=== PATIENT | female | born 1990 | race Caucasian/White ===

== ENCOUNTER 2022-07-23 01:22 | Outpatient (CLI) | payer OTHER, SELFPAY ==
[2022-07-23 08:02] LABS: Abs Immature Grans 0.02 10^3/uL (0.0-0.06); Absolute Basophil Count 0.05 10^3/uL (0.0-0.2); Absolute Eosinophil Count 0.17 10^3/uL (0.0-0.7); Absolute Lymphocyte Count 1.73 10^3/uL (1.2-3.4); Absolute Monocyte Count 0.89 10^3/uL (0.1-0.8); Absolute Neutrophil Count 6.81 10^3/uL (1.2-6.7); Basophils % 0.5; Eosinophils % 1.8; HCT 41.1 % (36.0-46.0); HGB 13.5 g/dL (11.2-15.7); Immature Grans % 0.2; Lymphocytes % 17.9; MCH 30.3 pg (27.0-33.0); MCHC 32.8 % (32.0-36.0); MCV 92 fL (80-95); MPV 9.4 fL (8.0-11.0); Monocytes % 9.2; Neutrophils % 70.4; Platelet Count 333 10^3/uL (130-400); RBC 4.45 10^6/uL (3.93-5.22); RDW 12.2 % (11.7-14.6); RDW-SD 41.9 fL; WBC 9.67 10^3/uL (4.4-10.8)
[2022-07-23 09:11] LABS: Anion Gap 6.8 mmol/L (3-11); BUN 9 mg/dL (7-18); CO2 29.2 mmol/L (21.0-32.0); CREATININE 0.8 mg/dL (0.55-1.02); Calcium 9.2 mg/dL (8.5-10.1); Calculated LDL 91 mg/dL (<100); Chloride 103 mmol/L (98-107); Cholesterol 156 mg/dL (<200); Estimated GFR 100.96 (mL/min/1.73m2); Glucose 93 mg/dL (74-106); HDL Cholesterol 52 mg/dL (40-60); Potassium 4.2 mmol/L (3.5-5.1); Sodium 139 mmol/L (136-145); Triglyceride 66 mg/dL (<150)
== END 2022-07-23 01:23 | disposition home or self-care (01) ==
LOC: LBO 01:22
PROVIDERS: PCP Nurse Practitioner Family; Referring Provider Nurse Practitioner Family; Visit Provider Nurse Practitioner Family
DX: Z00.00 Encounter for general adult medical examination without abnormal findings (principal); Z86.2 Personal history of diseases of the blood and blood-forming organs and certain disorders involving the immune mechanism; Z13.220 Encounter for screening for lipoid disorders; Z13.1 Encounter for screening for diabetes mellitus
CPT/HCPCS: 36415; 80048; 80061; 85025

== ENCOUNTER 2022-12-10 08:34 | Outpatient (CLI) | payer OTHER, SELFPAY ==
[2022-12-10 08:32] LABS: Abs Immature Grans 0.02 10^3/uL (0.0-0.06); Absolute Basophil Count 0.08 10^3/uL (0.0-0.2); Absolute Eosinophil Count 0.24 10^3/uL (0.0-0.7); Absolute Lymphocyte Count 2.65 10^3/uL (1.2-3.4); Absolute Neutrophil Count 4.22 10^3/uL (1.2-6.7); Eosinophils % 3.1; HGB 14.8 g/dL (11.2-15.7); Immature Grans % 0.3; Lymphocytes % 34.4; MCH 30.5 pg (27.0-33.0); MCHC 33.6 % (32.0-36.0); MCV 91 fL (80-95); MPV 9.1 fL (8.0-11.0); Monocytes % 6.5; Neutrophils % 54.7; Platelet Count 405 10^3/uL (130-400); RBC 4.85 10^6/uL (3.93-5.22); RDW 12.3 % (11.7-14.6); RDW-SD 40.7 fL; WBC 7.71 10^3/uL (4.4-10.8)
--- OUTSIDE RECORDS SUMMARY | 2022-12-10 08:37 | XMS_ITS ---
Author Name Jose Brunson Address [address], [place] [id number] Organization [facility] Address [address], [place] [id number] Care Team Providers Care Machine Icer Name Role Phone Jose Brunson Unavailable [phone] PROBLEMS Type Condition ICD9-CM Code YHP30-ON Code Onset Dates Condition Status SNOMED Code Problem Chronic tonsillitis and adenoiditis 474.02 Active 290227553 Problem Dyspareunia in female N94.10 Active 90768156 Problem Halitosis 784.99 Active 71060627 ALLERGIES Substance Reaction Event Type Date Status Iodine rash Drug Allergy January, Active Penicillin V Potassium Anaphylaxis Drug Allergy January, Active shellfish vomiting Non Drug Allergy January, Active Betadine rash Drug Allergy January, Active Tylenol/Codeine #3 Unknown Drug Allergy January, Ac tive ENCOUNTERS Encounter Location Date Diagnosis [address] [id number] May, [address] [id number] Apr, [address] [id number] Apr, [address] [id number] Apr, [address] [id number] 14 Jan, 2022 Acute non-recurrent pansinusitis J01.[address] [id number] 01 Dec, 2021 Encounter for gynecological examination (general) (routine) without abnormal findings Z01.419 and Encounter for other screening for malignant neoplasm of breast Z12.39 [facility] [address], [place] [id number] 20 May, 2021 Encounter for screening laboratory testing for COVID-19 virus Z20.822 [facility] [address] [place], [place] [id number] 11 Apr, 2021 Exposure to COVID-19 virus Z20.822 [facility] Department [address] [place] [id number] 19 Nov, 2020 COVID-19 vaccine administered Z23 [address] [id number] 24 Oct, 2020 COVID-19 vaccine administered Z23 [address] [id number] 23 Oct, [address] [id number] 13 Sep, 2020 6 weeks follow-up Z39.[address] [id number] Aug, [address] [id number] Aug, 2 weeks follow-up Z39.[address] [id number] Jul, 38 weeks gestation of Z3A.38 and Encounter for supervision of other normal , third trimester Z34.[address] [id number] Jul, Encounter for supervision of other normal , third trimester Z34.[address] [id number] 06 Jul, 2020 Encounter for supervision of other normal , third trimester Z34.83 and 34 weeks gestation of Z3A.[address] [id number] 19 Jun, 2020 Encounter for supervision of other normal , third trimester Z34.[address] [id number] 05 Jun, 2020 Encounter for supervision of other normal , third trimester Z34.83 and Encounter for immunization Z23 [address] [id number] 16 May, 2020 Encounter for supervision of other normal , second trimester Z34.[address] [id number] Apr, Encounter for supervision of other normal , second trimester Z34.82 and 23 weeks gestation of Z3A.[address] [id number] Mar, Encounter for supervision of other normal , second trimester Z34.82 and 19 weeks gestation of Z3A.[address] [id number] Feb, Encounter for supervision of other normal , second trimester Z34.[address] [id number] January, Encounter for supervision of other normal , first trimester Z34.[address] [id number] Dec, Encounter for supervision of other normal , first trimester Z34.[address] [id number] Dec, [address] [id number] Nov, [address] [id number] Nov, [address] [id number] Nov, [address] [id number] Nov, [facility] [address] [place] [id number] Nov, Encounter for occupational health assessment Z02.[address] [id number] Jul, [address] [id number] Apr, Encounter for IUD removal Z30.432 and Pre-conception counseling Z31.69 [facility] [address] [place] [id number] Mar, [address] [id number] Dec, [address] [id number] Dec, Acute sore throat J02.9 and Influenza A J10.[address] [id number] Oct, Post-nasal drip R09.[address] [id number] Oct, Dyspareunia in female N94.10 ; Perineal pain R10.2 and IUD surveillance Z30.[address] [id number] Sep, Acute non-recurrent maxillary sinusitis J01.[address] [id number] Sep, [address] [id number] Mar, IUD surveillance Z30.[address] [id number] Mar, [facility] [address] [id number] Mar, Routine adult health maintenance Z00.[address] [id number] Mar, care and examination Z39.2 ; Encounter for insertion of intrauterine contraceptive device Z30.430 and General counseling and advice for contraceptive management Z30.[address] [id number] Feb, [address] [id number] January, [place] [address] [place], [place] [id number] January, Encounter for supervision of normal first in third trimester Z34.[address] [id number] January, Encounter for supervision of normal first in third trimester Z34.03 and 38 weeks gestation of Z3A.[address] [id number] January, Encounter for supervision of normal first in third trimester Z34.[address] [id number] Dec, Encounter for supervision of normal first in third trimester Z34.[address] [id number] Dec, Encounter for supervision of normal first in third trimester Z34.[address] [id number] Nov, Encounter for supervision of normal first in third trimester Z34.03 and 32 weeks gestation of Z3A.[address] [id number] Nov, Encounter for supervision of normal first in third trimester Z34.03 ; 30 weeks gestation of Z3A.30 and Encounter for administration of vaccine Z23 [address] [id number] Oct, Encounter for supervision of normal first in third trimester Z34.03 ; 28 weeks gestation of Z3A.28 and Premature uterine contractions O47.[address] [id number] Oct, Encounter for supervision of normal first in second trimester Z34.02 [facility] [address] [place] [address] [id number] Oct, [address] [id number] Oct, Encounter for supervision of normal first in second trimester Z34.[address] [id number] Sep, Encounter for supervision of normal first in second trimester Z34.02 and 20 weeks gestation of Z3A.20 [facility] [address] [id number] Jul, Encounter for supervision of normal first in second trimester Z34.[address] [id number] Jul, Encounter for supervision of normal first in first trimester Z34.01 ; Nausea and vomiting during prior to 22 weeks gestation O21.9 and 11 weeks gestation of Z3A.[address] [id number] Jun, Encounter for supervision of normal first in first trimester Z34.01 ; Less than 8 weeks gestation of Z3A.01 ; Nausea and vomiting in O21.9 and Encounter for screening Z36.9 [facility] [id number] Apr, [facility] [address] [place] [id number] Apr, Chronic tonsillitis and adenoiditis 474.02 and Halitosis 784.99 UNKNOWN Mar, [facility] [address] [id number] Mar, Chronic tonsillitis and adenoiditis 474.02 and Halitosis 784.99 IMMUNIZATIONS Vaccine Route Administration Date Status COVID-19 (Pfizer) mRNA,LNP-S ,PF 30 mcg/0.3mL dose Unknown Oct 24, 2020 Administered COVID-19 (Pfizer) mRNA,LNP-S ,PF 30 mcg/0.3mL dose Unknown Oct 03, 2020 Administered Tdap - Adult IM Intramuscular Jun 16, 2020 Administere d ALBERTO - Flu VACC 6 MONTHS > IM Intramuscular May 27 Administered PPD ID Intradermal March 26, 2019 Administered SOCIAL HISTORY Qualifiers Date Never Smoker REASON FOR REFERRAL FUNCTIONAL STATUS PLAN OF CARE Activity Details VITAL SIGNS Height 63 in 2021-12-11 Height 63 in 2020-09-24 Height 63 in 2020-08-27 Height 63 in 2020-01-10 Height 63 in 2019-11-14 Height 63 in 2019-05-04 Height 63 in 2018-12-18 Height 63 in 2018-11-06 Height 63 in 2018-10-20 Height 63 in 2018-10-05 Height 63 in 2018-04-10 Height 63 in 2018-04-03 Height 63 in 2018-03-13 Height 63 in 2018-01-05 Height 63 in 2017-06-15 Weight 124.4 lbs 2021-12-11 Weight 131 lbs 2020-09-24 Weight 128.6 lbs 2020-08-27 Weight 148 lbs 2020-08-08 Weight 148.5 lbs 2020-07-31 Weight 149 lbs 2020-07-18 Weight 146.4 lbs 2020-06-30 Weight 143.2 lbs 2020-06-16 Weight 141.2 lbs 2020-05-28 Weight 134.8 lbs 2020-04-30 Weight 131.2 lbs 2020-04-04 Weight 128.2 lbs 2020-03-06 Weight 125.8 lbs 2020-02-06 Weight 126.8 lbs 2020-01-10 Weight 124.8 lbs 2019-05-04 Weight 121 lb 8 oz lbs 2018-12-18 Weight 121.6 lbs 2018-11-06 Weight 121.4 lbs 2018-10-20 Weight 123 lbs 2018-10-05 Weight 128.4 lbs 2018-04-10 Weight 127.2 lbs 2018-04-03 Weight 126.0 lbs 2018-03-13 Weight 148.0 lbs 2018-01-27 Weight 146.2 lbs 2018-01-20 Weight 148.0 lbs 2018-01-13 Weight 146.4 lbs 2018-01-05 Weight 145.8 lbs 2017-12-21 Weight 143 lbs 2017-12-07 Weight 141.6 lbs 2017-11-25 Weight 141.8 lbs 2017-11-09 Weight 135.8 lbs 2017-10-13 Weight 131 lbs 2017-09-13 Weight 128.4 lbs 2017-08-08 Weight 126.0 lbs 2017-07-13 Weight 126.4 lbs 2017-06-15 Temperature Temporal:97.4 degrees Fahrenheit 2018-12-18 Temperature Temporal:98 degrees Fahrenheit 2 Temperature Tympanic:97.8 degrees Fahrenheit 2018-10-05 Heart Rate 75 /min 2019-11-14 Heart Rate 80 /min 2018-12-18 Heart Rate 88 /min 2018-11-06 Heart Rate 80 /min 2018-10-05 Heart Rate 68 /min 2018-04-03 Heart Rate 76 /min 2012-04-03 Oximetry 98 2018-12-18 Oximetry 97 2018-11-06 Oximetry 98 2018-10-05 Oximetry 98 2018-04-03 Respiratory Rate 18 /min 2019-11-14 Respiratory Rate 16 /min 2012-04-03 BMI 22.03 kg/m2 2021-12-11 BMI 23.20 kg/m2 2020-09-24 BMI 22.78 kg/m2 2020-08-27 BMI 22.46 kg/m2 2020-01-10 BMI 22.10 kg/m2 2019-05-04 BMI 21.52 kg/m2 2018-12-18 BMI 21.54 kg/m2 2018-11-06 BMI 21.50 kg/m2 2018-10-20 BMI 21.79 kg/m2 2018-10-05 BMI 22.74 kg/m2 2018-04-10 BMI 22.53 kg/m2 2018-04-03 BMI 22.32 kg/m2 2018-03-13 BMI 25.934 kg/m2 2018-01-05 BMI 22.391 kg/m2 2017-06-15 Blood pressure systolic 106 mm Hg Blood pressure diastolic 66 mm Hg 2021-12 MEDICATIONS Medication Instructions Dosage Frequency Start Date End Date Duration Status Biotin 10 MG Orally Once a day 1 tablet 24h 30 day(s) Active 28-0.8 MG Active Vitamin D3 25 MCG (1000 UT) Orally Once a day 3 capsules 24h Active Vitamin B6 50 MG Orally Once a day 1 tablet 24h 30 day(s) Not-Fabiola zurita Drospirenone-E thinyl Estradiol 3-0.02 MG Orally Once a day 1 tablet 24h 19 May, 2022 28 day(s) Active Tums 500 MG Orally Once a day 1 tablet 24h 30 day(s) Not-Fabiola g Iron (Ferrous Sulfate) 325 (65 Fe) MG Orally Once a day 1 tablet 24h 30 day(s) Not-Takin g PROCEDURES Procedure Date Ordered Result Body Site SUBSEQUENT CARE January 05, 2018 SUBSEQUENT CARE Apr 30, 2020 REMOVE TONSILS AND ADENOIDS, AGE 12+ YRS Apr 17, 2012 CARE VISIT Sep 24, 2020 IUD REMOVAL May 04, 2019 INITIAL CARE VISIT Jun 15, 2017 SUBSEQUENT CARE February 06, 2020 SUBSEQUENT CARE Oct 13, 2017 SUBSEQUENT CARE March 06, 2020 SUBSEQUENT CARE January 27, 2018 SUBSEQUENT CARE Jul 18, 2020 SUBSEQUENT CARE Jun 30, 2020 SUBSEQUENT CARE Jul 13, 2017 SUBSEQUENT CARE Jul 31, 2020 SUBSEQUENT CARE December 21, 2017 SUBSEQUENT CARE Aug 08, 2017 SUBSEQUENT CARE December 07, 2017 OCD Respiratory Fit Testing November 14, 2019 OCD Mantoux test for Tuberculosis (includes read) March 26, 2019 SUBSEQUENT CARE November 25, 2017 INITIAL CARE VISIT January 10, 2020 SUBSEQUENT CARE Nov 09, 2017 RAPID INFLUENZA TEST December 18, 2018 SUBSEQUENT CARE May 28, 2020 CARE VISIT Aug 27, 2020 SUBSEQUENT CARE January 13, 2018 IUD INSERTION March 13, 2018 SUBSEQUENT CARE Jun 16, 2020 RAPID STREP TEST CLIA December 18, 2018 IMMUNIZATION ADMINISTRATION November 25, 2017 LNG-RELEASING IUC SYS 52MG 5 YR DUR March 13, 2018 SUBSEQUENT CARE April 04, 2020 SUBSEQUENT CARE Aug 08, 2020 Tdap - Adult November 25, 2017 SUBSEQUENT CARE Sep 13, 2017 Tdap - Adult Jun 16, 2020 SUBSEQUENT CARE January 20, 2018 CARE VISIT March 13, 2018 IMMUNIZATION ADMINISTRATION Jun 16, 2020 RESULTS Name Result Date Reference Range COVID 19 LRH PCR ([employer]) 2021-06-01 SARS-CoV-2, PCR NOT DETECTED NOT DETECTED SARS-CoV-2 Comment Negative results jacek uld not be used as the sole basis for diagnosis, treatment, or other patient management decisions. False negatives should be considered in the context of recent exposures and the presence of clinical signs and symptoms consistent with COVID-19. False negatives may also occur in patients whose viral load is below the limit of detection. An individual without symptoms of COVID-19 and who is not shedding the virus would be expected to have a negative result. COVID 19 LRH PCR ([employer]) AUTHORIZED ONLY 2021-04-22 HEMOGLOBIN/HEMATOCRIT 2020-08-15 HGB 10.9 12.0-16.0 HCT 32.3 37.0-47.0 SPECIAL LRH COVID 19, PCR 2020-08-13 SARS-CoV-2, PCR NEGATIVE NEGATIVE COV 4PLX COMMENT This test has been a uthorized by FDA under an EUA for use by authorized laboratories. False negative results may occur if virus is present at levels below the analytical limit of detection. URINE DIP ([facility]) 2020-07-31 Color Clarity Glucose negative Bilirubin Ketones Specific [place] Blood PH Protein +30 Uro Nitrates Leukocytes GROUP-B STREP SCREEN - RAPID PCR 2020-07-31 Group B Strep by PCR NEGATIVE NEGATIV E URINE DIP ([facility]) 2020-07-18 Color Clarity Glucose negative Bilirubin Ketones Specific [place] Blood PH Protein trace Uro Nitrates Leukocytes URINE DIP ([facility]) 2020-06-30 Color Clarity Glucose negative Bilirubin Ketones Specific [place] Blood PH Protein trace Uro Nitrates Leukocytes URINE DIP ([facility]) 2020-06-16 Color Clarity Glucose negative Bilirubin Ketones Specific [place] Blood PH Protein negative Uro Nitrates Leukocytes CBC, WITH AUTO DIFF 2020-05-28 WBC 12.1 4.8-10.8 RBC 3.28 4.20-5.40 HGB 10.7 12.0-16.0 HCT 31.1 37.0-47.0 MCV 94.8 81.0-99.0 MCH 32.6 27.0-31.0 MCHC 34.4 32.0-37.0 RDW-CV 12.6 11.5-14.5 PLT 311 130-400 MPV 9.5 7.4-10.4 NE% 75.4 42.2-75.2 LY% 16.1 20.5-51.1 MO% 5.6 1.7-9.3 EO% 1.2 0.9-2.9 BA% 0.5 0.0-0.8 NE# 9.1 1.4-6.5 LY# 1.9 1.2-3.4 MO# 0.7 0.1-0.6 EO# 0.1 0.0-0.2 BA# 0.1 0.0-0.2 URINE DIP ([facility]) 2020-05-28 Color Clarity Glucose negative Bilirubin Ketones Specific [place] Blood PH Protein negative Uro Nitrates Leukocytes GLUCOSE 2020-05-28 URINE DIP ([facility]) 2020-04-30 Color Clarity Glucose negative Bilirubin Ketones Specific [place] Blood PH Protein trace Uro Nitrates Leukocytes URINE DIP ([facility]) 2020-04-04 Color Clarity Glucose negative Bilirubin Ketones Specific [place] Blood PH Protein negative Uro Nitrates Leukocytes URINE DIP ([facility]) 2020-03-06 Color Clarity Glucose negative Bilirubin Ketones Specific [place] Blood PH Protein negative Uro Nitrates Leukocytes CULTURE URINE 2020-03-06 OB GREATER THAN 14 WEEKS 2020-04-04 URINE DIP ([facility]) 2020-02-06 Color Clarity Glucose normal Bilirubin Ketones Specific [place] Blood PH Protein negative Uro Nitrates Leukocytes Pap Lb, Ct-Ng, rfx HPV ASCU 2020-01-10 . Chlamydia, Nuc. Acid Amp Gonococcus, Nuc. Acid Amp Note: . Clinical history: DIAGNOSIS: Specimen adequacy: Additional comment: Recommendation: Performed by: Electronically signed by: Test ordered: Maturation index: Amended report: Addendum: QC reviewed by: Cytology history: Special procedure: QA comment: Diagnosis provided by: Source: Pathologist provided ICD9: * * * * Clinician provided ICD9: Interpretation LBP CPT Code Automation CBC, WITH AUTO DIFF 2020-01-10 WBC 14.6 4.8-10.8 RBC 4.34 4.20-5.40 HGB 13.6 12.0-16.0 HCT 38.5 37.0-47.0 MCV 88.7 81.0-99.0 MCH 31.3 27.0-31.0 MCHC 35.3 32.0-37.0 RDW-CV 12.4 11.5-14.5 PLT 397 130-400 MPV 9.3 7.4-10.4 NE% 67.0 42.2-75.2 LY% 25.7 20.5-51.1 EO% 1.0 0.9-2.9 BA% 0.5 0.0-0.8 NE# 9.7 1.4-6.5 LY# 3.7 1.2-3.4 MO# 0.8 0.1-0.6 EO# 0.2 0.0-0.2 BA# 0.1 0.0-0.2 HEPATITIS B SURFACE ANTIGEN, 2020-01-10 HEP B SURFACE AG NON-REACTIVE NON-REACTIV E RUBELLA IGG ANTIBODY 2020-01-10 RUBELLA 136.6 >=10.0 RUB HEAD REFERENCE RANGE: (IU /mL) <5.0 : NON-IMMUNE 5.0 - 9.9 : BARRIOS ZONE >= 10.0 : IMMUNE TYPE AND SCREEN, 2020-01-10 ABORh A POSITIVE ANTIBODY SCREEN NEGATIVE NEGATIVE TS COMM Pre-op Type & Screen specimens are valid for 7 days. If the patient has been transfused or been within the past 3 months, the specimen is only valid for 3 days. CHLAMYDIA/GONOCOCCUS, by PCR 2020-01-10 C. trachomatis by PCR PCR GENITAL SPECIMEN N. gonorrhoeae by PCR Chlamydia trachomatis, CHETNA Neisseria gonorrhoeae, CHETNA Please note: HIV12P 2020-01-10 HIV1/O/2 Abs,P24Ag NON-REACTIVE NON-REACT YOU SYPHILIS, 2020-01-10 SYPHILIS NON-REACTIVE NON-REACTIVE Rapid Flu 2018-12-18 Result positive type A Rapid Strep Screen 2018-12-18 Result neg URINE DIP ([facility]) 2018-01-27 Color Clarity Glucose negative Bilirubin Ketones Specific [place] Blood PH Protein trace Uro Nitrates Leukocytes URINE DIP ([facility]) 2018-01-13 Color Clarity Glucose negative Bilirubin Ketones Specific [place] Blood PH Protein trace Uro Nitrates Leukocytes GROUP-B STREP SCREEN - RAPID PCR 2018-01-05 Group B Strep by PCR NEGATIVE NEGATIV E URINE DIP ([facility]) 2017-12-21 Color Clarity Glucose negative Bilirubin Ketones Specific [place] Blood PH Protein trace Uro Nitrates Leukocytes URINALYSIS COMPLETE 2017-11-09 COLOR Yellow YELLOW CLARITY Clear CLEAR SPECIFIC GRAVITY 1.015 1.000-1.030 pH 7.0 5.0-8.0 PROTEIN Negative NEGATIVE GLUCOSE Negative NEGATIVE KETONES Negative NEGATIVE UROBILINOGEN 0.2 E.U./dL 0.2 E.U./DL BILIRUBIN Negative NEGATIVE BLOOD Negative NEGATIVE LEUKOCYTES Moderate NEGATIVE NITRITES Negative NEGATIVE RBCs 0-3 0-3 SQ EPITHELIAL CELLS 4-6 0-3 RTE CELLS 0-3 TRANSITIONAL EPIs 0-3 BACTERIA 1+ NONE SEEN CRYSTALS NONE SEEN HYALINE CASTS NONE SEEN GRANULAR CASTS NONE SEEN RBC CASTS NONE SEEN WBC CASTS NONE SEEN WAXY CASTS NONE SEEN YEAST NONE SEEN TRICHOMONADS NONE SEEN CULTURE URINE 2017-11-09 FIBRONECTIN 2017-11-09 FIBRONECTIN NEGATIVE NEGATIVE FFN_TEXT Interpretation of NE GATIVE result: a) 124 out of 125 symptomatic women with a negative result will not deliver within the next 14 days. b) 15 out of 16 high-risk asymptomatic women with a negative r CBC, WITH AUTO DIFF 2017-11-05 WBC 12.4 4.8-10.8 RBC 3.53 4.20-5.40 HGB 11.1 12.0-16.0 HCT 33.3 37.0-47.0 MCV 94.3 81.0-99.0 MCH 31.4 27.0-31.0 MCHC 33.3 32.0-37.0 RDW-CV 12.7 11.5-14.5 PLT 334 130-400 MPV 9.5 7.4-10.4 NE% 75.0 42.2-75.2 LY% 17.1 20.5-51.1 MO% 5.8 1.7-9.3 EO% 1.4 0.9-2.9 BA% 0.3 0.0-0.8 NE# 9.3 1.4-6.5 LY# 2.1 1.2-3.4 MO# 0.7 0.1-0.6 EO# 0.2 0.0-0.2 BA# 0.0 0.0-0.2 GLUCOSE BARRY GESTATIONAL(50GM) 2017-11-05 GLUCOSE - 1 HR POST 118 <=135 URINE DIP ([facility]) 2017-10-13 Color Clarity Glucose negative Bilirubin Ketones Specific [place] Blood PH Protein negative Uro Nitrates Leukocytes URINE DIP ([facility]) 2017-08-08 Color Clarity Glucose negative Bilirubin Ketones Specific [place] Blood PH Protein negative Uro Nitrates Leukocytes US OB GREATER THAN 14 WEEKS 2017-09-13 Pap Lb (Liquid-based) 2017-06-15 . Note: Clinical history: DIAGNOSIS: Neg for TA Specimen adequacy: Additional comment: Recommendation: Performed by: Electronically signed by: Test ordered: Maturation index: Amended report: Addendum: QC reviewed by: Cytology history: Special procedure: QA comment: Diagnosis provided by: Source: Pathologist provided ICD9: * * * * Clinician provided ICD9: Interpretation LBP CPT Code Automation CULTURE URINE 2017-06-15 HEPATITIS B SURFACE ANTIGEN, 2017-06-15 HEP B SURFACE AG NON-REACTIVE NON-REACTIV E RPR, 2017-06-15 RPR NON-REACTIVE NON-REACTIVE RUBELLA IGG ANTIBODY 2017-06-15 TYPE AND SCREEN, 2017-06-15 ABORh A POSITIVE ANTIBODY SCREEN NEGATIVE NEGATIVE TS COMM Pre-op Type & Screen specimens are valid for 7 days. If the patient has been transfused or been within the past 3 months, the specimen is only valid for 3 days. CHLAMYDIA/GONOCOCCUS, by PCR 2017-06-15 C. trachomatis by PCR neg PCR GENITAL SPECIMEN N. gonorrhoeae by PCR neg Chlamydia trachomatis, CHETNA Neisseria gonorrhoeae, CHETNA Please note: CBC (W/HIV) 2017-06-15 WBC 11.1 4.8-10.8 RBC 4.30 4.20-5.40 HGB 13.5 12.0-16.0 HCT 38.9 37.0-47.0 MCV 90.5 81.0-99.0 MCH 31.4 27.0-31.0 MCHC 34.7 32.0-37.0 RDW-CV 12.3 11.5-14.5 PLT 407 130-400 MPV 9.4 7.4-10.4 NE% 73.0 42.2-75.2 LY% 18.3 20.5-51.1 MO% 7.2 1.7-9.3 EO% 0.7 0.9-2.9 BA% 0.5 0.0-0.8 NE# 8.1 1.4-6.5 LY# 2.0 1.2-3.4 MO# 0.8 0.1-0.6 EO# 0.1 0.0-0.2 BA# 0.1 0.0-0.2 HIV12P 2017-06-15 HIV1/O/2 Abs,P24Ag NON-REACTIVE NON-REACT YOU REASON FOR VISIT ADVERTISING REP well woman, OCP Rx, Re:RE:Irregular cycle, Re:RE:Irregular cycle, Irregular cycle, Sinus infection, ADVERTISING REP well woman, ADVERTISING REP well woman, [employer] employee congestion cough, Point of Service COVID 19 Screening, COVID exposure, COVID-19 Vaccine Record Updated, COVID-19 Vaccine Administered, COVID-19 Vaccine Record Updated, COVID-19 Vaccine Administered, return to work letter, *ADVERTISING REP 6 week , 09/24/20 [facility] Mirena, ADVERTISING REP 2 WK PP, OB follow up, OB follow up, OB follow up, OB follow up, *OB follow up, [facility]: OB f/u, OB follow up, OB follow up, OB follow up, *OB follow up, [facility]: Ob f/u 2+preg/2ndtri, *OB follow up, [facility]: Ob f/u 2+preg/2nd tri, *OB follow up, OB follow up, OB New OB, OI, Re:RE:Time for labs?, Re:RE:Time for labs?, Time for labs?, OCC fit test, ADVERTISING REP IUD removal, does not want it replaced, OCC tbp , awaiting return contact from patient, PC ? FLU 24 hour history of high fever >102, bodyaches, minor cough, significant sore throat. Has had recent exposure to strep and flu, PC - cough, IUD check/pain, PC - Sinus Infection?, PC-Sinus infection, triage for appt, ADVERTISING REP 4 week follow up Mirena placed 03/13, Childcare Letter, PC - MOP MAKER, ADVERTISING REP 6 week post , IUD, Feeling better, Follow up call from 02/07, delivered, OB follow up, OB follow up, OB follow up, OB follow up, OB followup, OB follow up, OB follow up, OB follow up, Glucola orders, Needs MOP MAKER appointment , OB follow up, OB EST 5 WK F/UP, OB EST 5 WK F/UP, OB follow up, student ok, OB follow up, OB new ob, GI BOWEL IRREGULARITY-pt cld cx'd appt does not want to r/s at this point-mk, Ear, ENT T and A, chronic cryptic debris, halitosis, chronic sore throat localized to the tonsillar region, ent tonsils Insurance Providers Health Insurance Type Health Plan Insurance Address Health Plan Insurance Phone Health Plan Insurance Name Health Plan Coverage Dates Member ID Patient Relationship to Subscriber Patient Address Patient Phone Patient Name Patient Date of Subscriber ID Subscriber Name Subscriber Date of Group No [facility] [address] CELESTINA OLIVIA [id number] [facility] self Opal [place] [id number] [employer]TR[employer] ITS [address] [facility] [address] [facility] [id number] ULTRABENEF ITS [place]al [place] [id number] [facility] [address] CELESTINA OLIVIA [id number] [facility] self Opal [place] [id number] [facility] [address] [facility] [address] [facility] self Poal [place] [id number] [employer] [address] [place] OLIV[place] [id number] [employer] self Opal [place] [id number] [employer] [place] [address] [place] [address] [place] [place] [id number] [employer] [address] [place] [id number] [employer] self Opal Wall[place] [id number]
[2022-12-10 09:09] LABS: ALT 25 U/L (14-59); AST 17 U/L (15-37); Albumin 3.9 g/dL (3.4-5.0); Alkaline Phosphatase 64 U/L (46-116); Anion Gap 4.7 mmol/L (3-11); BUN 14 mg/dL (7-18); Bilirubin, Total 0.5 mg/dL (0.2-1.0); CO2 30.3 mmol/L (21.0-32.0); CREATININE 0.8 mg/dL (0.55-1.02); Calcium 9.4 mg/dL (8.5-10.1); Chloride 103 mmol/L (98-107); Estimated GFR 100.96 (mL/min/1.73m2); Glucose 100 mg/dL (74-106); Potassium 4.3 mmol/L (3.5-5.1); Sodium 138 mmol/L (136-145); TSH (W/Ref FT4) 1.09 uIU/mL (0.36-3.74); Total Protein 8.3 g/dL (6.4-8.2)
== END 2022-12-10 08:35 | disposition home or self-care (01) ==
LOC: LBO 08:35
PROVIDERS: PCP Nurse Practitioner Family; Visit Provider Nurse Practitioner Adult Health
DX: L29.9 Pruritus, unspecified (principal)
CPT/HCPCS: 36415; 80053; 84443; 85025